=== PATIENT | female | born 1935 | race Two or more races ===

== ENCOUNTER 2018-03-08 17:26 | Emergency (ER) | payer MEDICARE, OTHER ==
[2018-03-08] MEDS: morphine 4 MG/ML VIAL IM (18:25)
[2018-03-08 19:39] LABS: ADD MAN DIFF? NO
[2018-03-08 19:41] LABS: BASOPHIL # 0.1 10^3/ul (0.0-0.1); BASOPHILS % 0.6 % (0.0-2.0); EOSINOPHILS # 0.2 10^3/ul (0.0-0.5); EOSINOPHILS % 1.6 % (0.0-7.0); HEMATOCRIT 29.7 % (37.0-47.0); HEMOGLOBIN 8.9 g/dl (12.0-16.0); LYMPHOCYTES # 0.8 10^3/ul (0.8-2.9); MEAN CORPUSCULAR HEMOGLOBIN 27.4 pg (29.0-33.0); MEAN CORPUSCULAR VOLUME 91.4 fl (82.0-101.0); MEAN PLATELET VOLUME 10.3 fl (7.4-10.4); MONOCYTE # 0.4 10^3/ul (0.3-0.9); MONOCYTES % 3.8 % (0.0-11.0); NEUTROPHIL # 9.4 10^3/ul (1.6-7.5); NEUTROPHILS % 86.4 % (39.0-77.0); PLATELET COUNT 224 10^3/UL (140-415); RED BLOOD COUNT 3.25 10^6/ul (4.20-5.40); RED CELL DISTRIBUTION WIDTH 17.4 % (11.5-14.5)
[2018-03-08] MEDS: morphine 2 MG INJ IV (19:42)
[2018-03-08] MEDS: ONDANSETRON 4 MG INJ IV (19:42)
[2018-03-08] MEDS: KETOROLAC 15 MG INJ IV (19:42)
[2018-03-08] MEDS: SOD CHLORIDE 0.9% 500 ML IV (19:42)
[2018-03-08 19:56] LABS: LIPASE 13 U/L (23-300)
[2018-03-08 20:07] LABS: INR 2.41; PROTIME 26.9 Sec (11.9-14.9); PT RATIO 2.1
[2018-03-08 20:08] LABS: PARTIAL THROMBOPLASTIN TIME 41.5 Sec (25.0-35.0)
[2018-03-08 20:20] LABS: TROPONIN-I < 0.012 ng/ml (0.00-0.12)
[2018-03-08 21:17] LABS: ADD UMIC YES; UR ASCORBIC ACID NEGATIVE (NEGATIVE); UR BILIRUBIN (Dip) NEGATIVE (NEGATIVE); UR BLOOD (Dip) 2+ mg/dL (NEGATIVE); UR CLARITY CLEAR (CLEAR); UR COLOR YELLOW (YELLOW); UR GLUCOSE (Dip) 2+ mg/dL (NEGATIVE); UR KETONES (Dip) NEGATIVE (NEGATIVE); UR LEUKOCYTE ESTERASE (Dip) NEGATIVE Leu/ul (NEGATIVE); UR NITRITE (Dip) NEGATIVE (NEGATIVE); UR RBC 3 /HPF (0-5); UR SPECIFIC GRAVITY (Dip) 1.009 (1.003-1.030); UR TOTAL PROTEIN (Dip) NEGATIVE (NEGATIVE); UR UROBILINOGEN (Dip) NEGATIVE (NEGATIVE); UR WBC 1 /HPF (0-5)
== END 2018-03-09 | disposition short-term general hospital (02) ==
LOC: E/R 17:26
DX: S72.302A Unspecified fracture of shaft of left femur, initial encounter for closed fracture (principal); D64.9 Anemia, unspecified; R79.1 Abnormal coagulation profile; I10 Essential (primary) hypertension; E11.9 Type 2 diabetes mellitus without complications; W19.XXXA Unspecified fall, initial encounter; Y92.009 Unspecified place in unspecified non-institutional (private) residence as the place of occurrence of the external cause; Z96.642 Presence of left artificial hip joint
CPT/HCPCS: 29505; 36415; 73510; 73550; 73562; 81001; 83690; 84484; 85025; 85610; 85730; 93005; 96372; 96374; 96375; 99285-25

== ENCOUNTER 2019-06-11 12:26 | Inpatient (IN) | payer MEDICARE, OTHER ==
[2019-06-11] MEDS: ACETAMINOPHEN 325 MG TAB PO (13:03)
[2019-06-11 13:04] LABS: ADD MAN DIFF? NO
[2019-06-11] MEDS: CEFEPIME 2GM/50 ML (PMX) 50 ML IVPB (13:04)
[2019-06-11] MEDS: SODIUM CHLORIDE 0.9% 1L BAG IV* (13:04)
[2019-06-11 13:07] LABS: BASOPHIL # 0.1 10^3/ul (0.0-0.1); EOSINOPHILS # 0.2 10^3/ul (0.0-0.5); EOSINOPHILS % 4.8 % (0.0-7.0); HEMATOCRIT 32.3 % (37.0-47.0); HEMOGLOBIN 9.4 g/dl (12.0-16.0); LYMPHOCYTES # 0.7 10^3/ul (0.8-2.9); LYMPHOCYTES % 13.8 % (15.0-51.0); MEAN CORPUSCULAR HEMOGLOBIN 26.9 pg (29.0-33.0); MEAN CORPUSCULAR HGB CONC 29.1 g/dl (32.0-37.0); MEAN CORPUSCULAR VOLUME 92.3 fl (82.0-101.0); MEAN PLATELET VOLUME 11.1 fl (7.4-10.4); MONOCYTE # 0.3 10^3/ul (0.3-0.9); MONOCYTES % 6.9 % (0.0-11.0); NEUTROPHIL # 3.5 10^3/ul (1.6-7.5); NEUTROPHILS % 73.3 % (39.0-77.0); PLATELET COUNT 153 10^3/UL (140-415); RED CELL DISTRIBUTION WIDTH 17.6 % (11.5-14.5)
[2019-06-11 13:07] LABS: WHITE BLOOD COUNT 4.8 10^3/ul (4.8-10.8)
[2019-06-11 13:27] LABS: INR 2.76; PROTIME 29.2 Sec (11.9-14.9); PT RATIO 2.3
[2019-06-11 13:28] LABS: PARTIAL THROMBOPLASTIN TIME 47.5 Sec (23.0-35.0)
[2019-06-11 13:30] LABS: ALANINE AMINOTRANSFERASE 14 IU/L (13-69); ALBUMIN 3.6 g/dl (3.3-4.9); ALBUMIN/GLOBULIN RATIO 1.12; ALKALINE PHOSPHATASE 81 IU/L (42-121); ANION GAP 9 (5-13); ASPARTATE AMINO TRANSFERASE 18 IU/L (15-46); BILIRUBIN,INDIRECT 0.4 mg/dl (0-1.1); BILIRUBIN,TOTAL 0.4 mg/dl (0.2-1.3); BLOOD UREA NITROGEN 27 mg/dl (7-20); CALCIUM 8.8 mg/dl (8.4-10.2); CARBON DIOXIDE 24 mmol/L (21-31); CHLORIDE 108 mmol/L (97-110); GLUCOSE 174 mg/dl (70-220); SODIUM 141 mmol/L (135-144); TOTAL PROTEIN 6.8 g/dl (6.1-8.1)
[2019-06-11 13:39] LABS: TROPONIN-I < 0.012 ng/ml (0.000-0.120)
[2019-06-11] MEDS: VANCOMYCIN 1 GM (PMX) 250 ML IVPB (13:44)
[2019-06-11 15:18] LABS: ADD UMIC YES; UR ASCORBIC ACID NEGATIVE (NEGATIVE); UR BILIRUBIN (Dip) NEGATIVE (NEGATIVE); UR BLOOD (Dip) 3+ mg/dL (NEGATIVE); UR CLARITY CLOUDY (CLEAR); UR COLOR YELLOW (YELLOW); UR GLUCOSE (Dip) 1+ mg/dL (NEGATIVE); UR KETONES (Dip) NEGATIVE (NEGATIVE); UR LEUKOCYTE ESTERASE (Dip) NEGATIVE Leu/ul (NEGATIVE); UR NITRITE (Dip) NEGATIVE (NEGATIVE); UR RBC > 182 /HPF (0-5); UR SPECIFIC GRAVITY (Dip) 1.017 (1.003-1.030); UR TOTAL PROTEIN (Dip) 2+ mg/dl (NEGATIVE); UR UROBILINOGEN (Dip) NEGATIVE (NEGATIVE); UR WBC 0 /HPF (0-5)
[2019-06-11 15:31] LABS: CREATINE KINASE 38 IU/L (23-200)
[2019-06-11 15:38] LABS: B-TYPE NATRIURETIC PEPTIDE 12300 PG/ML (0-450)
[2019-06-11] MEDS ORDERED: ACETAMINOPHEN 325 MG TAB PO (16:30)
[2019-06-11] MEDS ORDERED: ONDANSETRON 4 MG INJ IV (16:30)
[2019-06-11] MEDS: LORAZEPAM 2 MG INJ IV (16:55)
[2019-06-11] MEDS ORDERED: VANCOMYCIN IV PER PHARMACY XX (20:00)
[2019-06-11] MEDS: INSULIN ASPART [NOVOLOG] 3 ML PEN SC (20:00)
[2019-06-11] MEDS ORDERED: ENOXAPARIN 40 MG/0.4 ML SYG SC (20:00)
[2019-06-11] MEDS ORDERED: GLUCOSE GEL 15 GRAM TUBE PO ×2 (20:30)
[2019-06-11] MEDS ORDERED: GLUCAGON 1 MG INJ IM (20:30)
[2019-06-11] MEDS ORDERED: GLUCOSE GEL 15 GRAM TUBE BUCCAL (20:30)
[2019-06-11] MEDS ORDERED: DEXTROSE 50% 50 ML SYRINGE IV ×2 (20:30)
[2019-06-11] MEDS: SOD CHLORIDE 0.9% 1,000 ML IV (20:38)
[2019-06-11] MEDS: QUETIAPINE 25 MG TAB PO ×2 (21:00→22:18)
[2019-06-11] MEDS ORDERED: QUETIAPINE FUMARATE 50 MG PO (21:00)
[2019-06-11 21:41] LABS: IRON 46 ug/dl (35-150)
[2019-06-11 21:51] LABS: % IRON SATURATION 18 % SAT (22-52); TOTAL IRON BINDING CAPACITY 257 ug/dl (241-421)
[2019-06-11 22:01] LABS: MAGNESIUM 1.8 mg/dl (1.7-2.5)
[2019-06-11] MEDS: VANCOMYCIN 500 MG (PMX) 100 ML IVPB (22:17)
[2019-06-11] MEDS: ATENOLOL 25 MG TAB PO ×2 (22:18→22:27)
[2019-06-12] MEDS: FUROSEMIDE 20 MG INJ IV (05:28)
[2019-06-12] MEDS: INSULIN ASPART [NOVOLOG] 3 ML PEN SC ×3 (05:34→12:30)
[2019-06-12 06:07] LABS: ADD MAN DIFF? NO
[2019-06-12 06:10] LABS: ABNORMAL IP MESSAGE 1; BASOPHILS % 1.1 % (0.0-2.0); EOSINOPHILS # 0.3 10^3/ul (0.0-0.5); HEMOGLOBIN 8.9 g/dl (12.0-16.0); LYMPHOCYTES # 0.5 10^3/ul (0.8-2.9); LYMPHOCYTES % 14.3 % (15.0-51.0); MEAN CORPUSCULAR HEMOGLOBIN 26.9 pg (29.0-33.0); MEAN CORPUSCULAR HGB CONC 29.7 g/dl (32.0-37.0); MEAN CORPUSCULAR VOLUME 90.6 fl (82.0-101.0); MEAN PLATELET VOLUME 10.5 fl (7.4-10.4); MONOCYTE # 0.2 10^3/ul (0.3-0.9); MONOCYTES % 6.4 % (0.0-11.0); NEUTROPHIL # 2.6 10^3/ul (1.6-7.5); NEUTROPHILS % 69.9 % (39.0-77.0); PLATELET COUNT 130 10^3/UL (140-415); RED BLOOD COUNT 3.31 10^6/ul (4.20-5.40); RED CELL DISTRIBUTION WIDTH 17.4 % (11.5-14.5)
[2019-06-12 06:10] LABS: WHITE BLOOD COUNT 3.8 10^3/ul (4.8-10.8)
[2019-06-12 06:13] LABS: POSITIVE DIFF @See below
[2019-06-12 07:02] LABS: ANION GAP 10 (5-13); BLOOD UREA NITROGEN 25 mg/dl (7-20); CALCIUM 8.6 mg/dl (8.4-10.2); CARBON DIOXIDE 21 mmol/L (21-31); CHLORIDE 112 mmol/L (97-110); CREATININE 1.22 mg/dl (0.44-1.00); GLUCOSE 119 mg/dl (70-220); POTASSIUM 4.7 mmol/L (3.5-5.1); SODIUM 143 mmol/L (135-144)
[2019-06-12 08:21] LABS: ETHANOL < 10.0 mg/dl (0-0)
[2019-06-12] MEDS: ATENOLOL 25 MG TAB PO (08:34)
[2019-06-12] MEDS: SPIRONOLACTONE 25 MG TAB PO ×2 (08:34→09:00)
[2019-06-12] MEDS: LINAGLIPTIN 5 MG TABLET PO (08:34)
[2019-06-12] MEDS ORDERED: NON-FORMULARY/PATIENT OWN MED (Sitagliptin* (Januvia*) 100 MG) PO (09:00)
[2019-06-12] MEDS ORDERED: ENALAPRIL 5 MG TAB PO (09:00)
[2019-06-12] MEDS: RIVAROXABAN 10 MG TABLET PO (12:53)
[2019-06-12] MEDS: ENALAPRIL 5 MG TAB PO (12:53)
[2019-06-12] MEDS: CEFEPIME 2GM/50 ML (PMX) 50 ML IVPB (12:53)
[2019-06-12 14:49] LABS: ADD UMIC YES; UR ASCORBIC ACID NEGATIVE (NEGATIVE); UR BILIRUBIN (Dip) NEGATIVE (NEGATIVE); UR BLOOD (Dip) 3+ mg/dL (NEGATIVE); UR CLARITY SLIGHTLY CLOUDY (CLEAR); UR COLOR YELLOW (YELLOW); UR GLUCOSE (Dip) NEGATIVE (NEGATIVE); UR KETONES (Dip) NEGATIVE (NEGATIVE); UR LEUKOCYTE ESTERASE (Dip) TRACE Leu/ul (NEGATIVE); UR NITRITE (Dip) NEGATIVE (NEGATIVE); UR RBC 129 /HPF (0-5); UR SPECIFIC GRAVITY (Dip) 1.011 (1.003-1.030); UR SQUAMOUS EPITHELIAL CELL FEW /HPF (FEW); UR TOTAL PROTEIN (Dip) NEGATIVE (NEGATIVE); UR UROBILINOGEN (Dip) NEGATIVE (NEGATIVE); UR WBC 18 /HPF (0-5)
[2019-06-12] MEDS ORDERED: QUETIAPINE 25 MG TAB PO (21:00)
[2019-06-13] MEDS ORDERED: VANCOMYCIN 1 GM 250 ML IVPB (09:00)
[2019-06-16 18:11] LABS: MYOGLOBIN 46 mcg/L (< 67)
== END 2019-06-12 16:45 | disposition left against medical advice (07) | DRG 864 ==
LOC: E/R 12:26 → 6WM 16:12
PROVIDERS: Family Medicine
DX: R50.9 Fever, unspecified (principal); L03.116 Cellulitis of left lower limb; L03.115 Cellulitis of right lower limb; I48.91 Unspecified atrial fibrillation; Z79.01 Long term (current) use of anticoagulants; G30.9 Alzheimer's disease, unspecified; F02.80 Dementia in other diseases classified elsewhere, unspecified severity, without behavioral disturbance, psychotic disturbance, mood disturbance, and anxiety; F32.9 Major depressive disorder, single episode, unspecified; E78.5 Hyperlipidemia, unspecified; M81.0 Age-related osteoporosis without current pathological fracture; G93.0 Cerebral cysts; R25.1 Tremor, unspecified; R31.9 Hematuria, unspecified; R41.82 Altered mental status, unspecified; I50.9 Heart failure, unspecified; N18.9 Chronic kidney disease, unspecified; E66.9 Obesity, unspecified; Z68.31 Body mass index [BMI] 31.0-31.9, adult
CPT/HCPCS: 36415; 70450; 71045; 72170; 76700; 76856; 80048; 80053; 80307; 81001; 82550; 82962; 83540; 83605; 83735; 83874; 83880; 84443; 84484; 85025; 85610; 85730; 87040-91; 87086; 93005; 93880; 96374; 96375; 99285-25